=== PATIENT | male | born 1960 | race Caucasian/White ===

== ENCOUNTER 2017-05-04 17:50 | Emergency (ER) | payer OTHER ==
[~2017-05-04] VITALS: Ht 170.2 cm; Wt 93.4 kg
[~2017-05-04 17:50] MED LIST: ADVIL,NUPRIN,M200 MG PO; ALBUTEROL SULF8.5 GM IH; ALPRAZOLAM0.5 MG; ASCORBIC ACID100 MG PO; B-1100 MG PO; BUSPAR10 MG PO; CELEXA10 MG PO; CITALOPRAM HBR10 MG PO; CITALOPRAM HBR20 MG; CITALOPRAM HBR20 MG PO; CLOTRIM ANTIFUN15 GM TP; DESYREL100 MG; DESYREL100 MG PO; HYDROCHLOROTH12.5 M3 PO; LIBRIUM25 MG PO; LITHIUM; LITHIUM CARBON300 M1; LITHIUM CARBON300 M1 PO; LITHIUM CARBON300 MG PO; LITHIUM CARBON450 MG PO; MIRTAZAPINE15 MG PO; MOTRIN600 M1 PO; NAPROSYN500 MG; NAPROXEN500 MG PO; ONE DAILY1 EAC3 PO; OXYCODONE HCL5 MG; PANTOPRAZOLE SO40 MG PO; PERCOCET 5/31 TABLET PO; PROAIR HFA8.5 GM IH; QUETIAPINE FUM100 MG PO; QUETIAPINE FUM200 MG PO; QUETIAPINE FUMARATE; SEROQUEL300 MG PO; SEROQUEL50 MG PO; THERAGRAN1 TABLET PO; TRAZODONE HCL300 MG PO; UNABLEOBTAIN; VENTOLIN HFA18 GM IH; ZOLOFT; ZOLOFT100 M1 PO; Zeasorb Antifungal Treatment,Mitrazol Powder TP; [UNRECOGNIZED DRUG - REMARK]
[2017-05-04 18:08] VITALS: BP 91/68
[2017-05-04 18:52] LABS: BASOPHIL (%) 0.8 % (0-1); BASOPHIL COUNT 0.1 K/uL (0-0.1); EOSINOPHIL (%) 2.8 % (0-5); EOSINOPHIL COUNT 0.2 K/uL (0-0.3); HEMOGLOBIN 15.2 G/DL (12.5-16.6); IMMATURE GRANULOCYTE (%) 0.3 % (0.0-0.7); LYMPHOCYTE (%) 27.1 % (15-42); LYMPHOCYTE COUNT 1.6 K/uL (1.0-2.8); MCH 33.3 PG (29.0-34.0); MCHC 35.3 G/DL (30.0-36.0); MCV 94.3 FL (86-99); MONOCYTE (%) 16.3 % (3-12); NEUTROPHIL (%) 52.7 % (45-76); NEUTROPHIL COUNT 3.2 K/uL (1.8-6.4); RBC DIS.WIDTH-CV 12.9 % (11.8-14.6); RBC DIS.WIDTH-SD 44.6 % (39-53); RED BLOOD COUNT 4.56 M/uL (4.00-5.50)
[2017-05-04 18:55] LABS: PLATELET COUNT 217 K/uL (156-360)
[2017-05-04 19:05] LABS: CHLORIDE 90 mEq/L (99-109); SODIUM 128 mEq/L (136-147)
[2017-05-04 19:07] LABS: GLUCOSE 105 mg/dL (70-99)
[2017-05-04 19:10] LABS: SERUM ETHYL ALCOHOL 190 mg/dL
[2017-05-04 19:11] LABS: CREATININE 1.4 mg/dL (0.6-1.3); GFR ESTIMATE (CALCULATED) 56 mL/min/ (58.99-99999)
[2017-05-04 19:12] LABS: UREA NITROGEN (BUN) 24 mg/dL (9-23)
== END 2017-05-04 21:14 | disposition home or self-care (01) ==
LOC: EME 17:50
PROVIDERS: Emergency Medicine
DX: F10.129 Alcohol abuse with intoxication, unspecified (principal); Y90.6 Blood alcohol level of 120-199 mg/100 ml; T40.601A Poisoning by unspecified narcotics, accidental (unintentional), initial encounter; S00.91XA Abrasion of unspecified part of head, initial encounter; W19.XXXA Unspecified fall, initial encounter; K21.9 Gastro-esophageal reflux disease without esophagitis; I10 Essential (primary) hypertension; J44.9 Chronic obstructive pulmonary disease, unspecified; F20.9 Schizophrenia, unspecified; F90.9 Attention-deficit hyperactivity disorder, unspecified type; F17.200 Nicotine dependence, unspecified, uncomplicated; Z88.0 Allergy status to penicillin
CPT/HCPCS: 70450; 80048; 81003; 85025; 99281; 99284; G0480; J2310; J7030

== ENCOUNTER 2017-06-12 09:31 | Emergency (ER) | payer OTHER ==
[~2017-06-12] VITALS: Ht 170.2 cm; Wt 88.2 kg
[2017-06-12 10:20] LABS: HEMATOCRIT 40.8 % (38.0-50.0); HEMOGLOBIN 14.9 G/DL (12.5-16.6); MCH 33.4 PG (29.0-34.0); MCHC 36.5 G/DL (30.0-36.0); MCV 91.5 FL (86-99); PLATELET COUNT 267 K/uL (156-360); RBC DIS.WIDTH-CV 12.6 % (11.8-14.6); RBC DIS.WIDTH-SD 42.5 % (39-53); RED BLOOD COUNT 4.46 M/uL (4.00-5.50); WHITE BLOOD COUNT 6.2 K/uL (4.1-10.2)
[2017-06-12 10:32] LABS: CHLORIDE 95 mEq/L (99-109); POTASSIUM 3.9 mEq/L (3.7-5.4); SODIUM 132 mEq/L (136-147)
[2017-06-12 10:33] LABS: GLUCOSE 93 mg/dL (70-99)
[2017-06-12 10:37] LABS: GFR ESTIMATE (CALCULATED) > 59 mL/min/ (58.99-99999)
[2017-06-12 10:38] LABS: UREA NITROGEN (BUN) 16 mg/dL (9-23)
[2017-06-12 10:42] LABS: TROP-I INTERPRETATION NEGATIVE; TROPONIN-I < 0.01 ng/mL (0.0-0.30)
[2017-06-12] MEDS ORDERED: LORTAB 5-325 M1 EACH PO (12:20)
[2017-06-12 13:35] LABS: TROP-I INTERPRETATION NEGATIVE; TROPONIN-I < 0.01 ng/mL (0.0-0.30)
[2017-06-12 13:47] VITALS: BP 136/54
== END 2017-06-12 13:48 | disposition home or self-care (01) ==
LOC: EME 09:31
PROVIDERS: Physician Assistant Medical
DX: S22.41XA Multiple fractures of ribs, right side, initial encounter for closed fracture (principal); W11.XXXA Fall on and from ladder, initial encounter; J44.9 Chronic obstructive pulmonary disease, unspecified; I10 Essential (primary) hypertension; K21.9 Gastro-esophageal reflux disease without esophagitis; K75.9 Inflammatory liver disease, unspecified; F90.9 Attention-deficit hyperactivity disorder, unspecified type; F41.9 Anxiety disorder, unspecified; F20.9 Schizophrenia, unspecified; F17.200 Nicotine dependence, unspecified, uncomplicated; Z88.0 Allergy status to penicillin
CPT/HCPCS: 71046; 71100; 80048; 84484; 85027; 93005; 99281; 99284

== ENCOUNTER 2017-07-06 19:18 | Emergency (ER) | payer OTHER ==
[~2017-07-06] VITALS: Ht 167.6 cm; Wt 92.3 kg
[~2017-07-06 19:18] MED LIST changes: +LORTAB 5-325 M1 EACH PO
[2017-07-06 20:46] VITALS: BP 122/73
== END 2017-07-06 20:40 | disposition home or self-care (01) ==
LOC: EME 19:18
DX: F10.129 Alcohol abuse with intoxication, unspecified (principal); K21.9 Gastro-esophageal reflux disease without esophagitis; J44.9 Chronic obstructive pulmonary disease, unspecified; I10 Essential (primary) hypertension; F90.9 Attention-deficit hyperactivity disorder, unspecified type; F41.9 Anxiety disorder, unspecified; F20.9 Schizophrenia, unspecified; K75.9 Inflammatory liver disease, unspecified; F17.200 Nicotine dependence, unspecified, uncomplicated; Z88.0 Allergy status to penicillin
CPT/HCPCS: 99281; 99283

== ENCOUNTER 2017-07-12 22:17 | Inpatient (IN) | payer OTHER ==
[~2017-07-12] VITALS: Ht 167.6 cm; Wt 78.1 kg
[2017-07-12 23:04] LABS: HEMATOCRIT 34.8 % (38.0-50.0); HEMOGLOBIN 12.7 G/DL (12.5-16.6); MCH 33.7 PG (29.0-34.0); MCHC 36.5 G/DL (30.0-36.0); MCV 92.3 FL (86-99); PLATELET COUNT 106 K/uL (156-360); RBC DIS.WIDTH-CV 13.1 % (11.8-14.6); RBC DIS.WIDTH-SD 44.2 % (39-53); RED BLOOD COUNT 3.77 M/uL (4.00-5.50); WHITE BLOOD COUNT 13.2 K/uL (4.1-10.2)
[2017-07-12 23:13] LABS: ALBUMIN 3.6 g/dL (3.2-4.8); CHLORIDE 95 mEq/L (99-109); POTASSIUM 3.5 mEq/L (3.7-5.4); SODIUM 130 mEq/L (136-147)
[2017-07-12 23:16] LABS: GLUCOSE 102 mg/dL (70-99); TOTAL PROTEIN 7.5 g/dL (6.4-8.3)
[2017-07-12 23:18] LABS: TOTAL BILIRUBIN 1.2 mg/dL (0.0-1.0)
[2017-07-12 23:19] LABS: ALKALINE PHOSPHATASE 91 IU/L (3-129); INTER. NORMALIZED RATIO 1.1; SERUM ETHYL ALCOHOL 59 mg/dL
[2017-07-12 23:20] LABS: CREATININE 0.8 mg/dL (0.6-1.3); GFR ESTIMATE (CALCULATED) > 59 mL/min/ (58.99-99999)
[2017-07-12 23:21] LABS: AST (GOT) 53 IU/L (2-34); UREA NITROGEN (BUN) 13 mg/dL (9-23)
[2017-07-12 23:22] LABS: ALT (GPT) 69 IU/L (3-49); PTT 29.1 SEC (25-37)
[2017-07-12 23:23] LABS: LIPASE 78 U/L (1.0-51.0)
[2017-07-12 23:26] LABS: TROP-I INTERPRETATION NEGATIVE; TROPONIN-I 0.02 ng/mL (0.0-0.30)
[2017-07-13] MEDS ORDERED: PRINZIDE 20-121 EACH PO (01:49)
[2017-07-13 06:00] VITALS: BP 16/86
[2017-07-13 06:20] VITALS: BP 136/86
[2017-07-13 08:34] VITALS: BP 131/86
[2017-07-13 16:12] VITALS: BP 140/72
[2017-07-14 00:05] VITALS: BP 149/99
[2017-07-14 08:15] VITALS: BP 119/79
[2017-07-14 12:05] LABS: ALBUMIN 3.6 G/DL (3.2-4.8); ALKALINE PHOSPHATASE 84 IU/L (3-129); ALT (GPT) 43 IU/L (3-49); AST (GOT) 38 IU/L (2-34); CHLORIDE 104 MEQ/L (99-109); CREATININE 0.7 MG/DL (0.6-1.3); DIRECT BILIRUBIN 0.3 mg/dL (0.0-0.3); GFR ESTIMATE (CALCULATED) > 59 mL/min/ (58.99-99999); GLUCOSE 109 mg/dL (70-99); POTASSIUM 3.9 MEQ/L (3.7-5.4); SODIUM 135 MEQ/L (136-147); TOTAL BILIRUBIN 0.7 MG/DL (0.0-1.0); UREA NITROGEN (BUN) 18 mg/dL (9-23)
[2017-07-14 12:18] LABS: HEMATOCRIT 37.9 % (38.0-50.0); HEMOGLOBIN 13.3 G/DL (12.5-16.6); MCH 33.4 PG (29.0-34.0); MCHC 35.1 G/DL (30.0-36.0); MCV 95.2 FL (86-99); PLATELET COUNT 128 K/uL (156-360); RBC DIS.WIDTH-CV 13.3 % (11.8-14.6); RBC DIS.WIDTH-SD 46.9 % (39-53); RED BLOOD COUNT 3.98 M/uL (4.00-5.50); WHITE BLOOD COUNT 6.4 K/uL (4.1-10.2)
[2017-07-14 14:56] LABS: MAGNESIUM 1.8 mg/dl (1.3-2.7)
[2017-07-14 16:32] VITALS: BP 127/74
[2017-07-14 18:37] LABS: APPEARANCE CLEAR ((CLEAR)); BILIRUBIN NEGATIVE; BLOOD SMALL; COLOR YELLOW ((YELLOW)); GLUCOSE (STRIP) NEGATIVE; KETONES NEGATIVE; LEUKOCYTES LARGE; NITRITE POSITIVE; PROTEIN (STRIP) 30; UROBILINOGEN 0.2 MG/DL (0.2-1.0)
[2017-07-14 19:27] LABS: BACTERIA NONE SEEN /HPF; EPITHELIAL CELLS NONE SEEN /HPF; MUCUS TRACE /LPF; RED BLOOD CELLS 0-5 /HPF (0-5); UCUL ADDED? YES
[2017-07-14 23:48] VITALS: BP 157/88
[2017-07-15 06:21] LABS: HEMATOCRIT 36.1 % (38.0-50.0); HEMOGLOBIN 12.6 G/DL (12.5-16.6); MCH 32.7 PG (29.0-34.0); MCHC 34.9 G/DL (30.0-36.0); MCV 93.8 FL (86-99); PLATELET COUNT 129 K/uL (156-360); RBC DIS.WIDTH-CV 13.2 % (11.8-14.6); RBC DIS.WIDTH-SD 45.2 % (39-53); RED BLOOD COUNT 3.85 M/uL (4.00-5.50); WHITE BLOOD COUNT 8.4 K/uL (4.1-10.2)
[2017-07-15 06:50] LABS: CHLORIDE 97 MEQ/L (99-109); CREATININE 0.6 MG/DL (0.6-1.3); GFR ESTIMATE (CALCULATED) > 59 mL/min/ (58.99-99999); GLUCOSE 89 mg/dL (70-99); POTASSIUM 3.5 MEQ/L (3.7-5.4); SODIUM 130 MEQ/L (136-147); UREA NITROGEN (BUN) 11 mg/dL (9-23)
[2017-07-15 16:10] VITALS: BP 138/85
[2017-07-15 23:30] VITALS: BP 144/89
[2017-07-16 07:27] VITALS: BP 131/88
[2017-07-16 15:33] VITALS: BP 142/97
[2017-07-17 00:20] VITALS: BP 142/85
[2017-07-17 07:39] VITALS: BP 138/79
[2017-07-17 09:20] LABS: CHLORIDE 100 MEQ/L (99-109); CREATININE 0.7 MG/DL (0.6-1.3); GFR ESTIMATE (CALCULATED) > 59 mL/min/ (58.99-99999); POTASSIUM 3.6 MEQ/L (3.7-5.4); SODIUM 135 MEQ/L (136-147); UREA NITROGEN (BUN) 12 mg/dL (9-23)
[2017-07-17 09:21] LABS: GLUCOSE 114 mg/dL (70-99)
[2017-07-17] MEDS ORDERED: ENDOCET 5-3251 EACH PO (16:14)
[2017-07-17] MEDS ORDERED: FOLIC ACID1 MG PO (16:14)
[2017-07-17] MEDS ORDERED: CITALOPRAM HBR10 MG PO (16:14)
[2017-07-17] MEDS ORDERED: NICOTINE PATCH1 EAC1 TD (16:14)
[2017-07-17] MEDS ORDERED: LEVOFLOXACIN750 MG PO (16:14)
[2017-07-17] MEDS ORDERED: B-1100 MG PO (16:17)
[2017-07-17] MEDS ORDERED: COLACE100 MG PO (16:19)
== END 2017-07-17 17:32 | disposition home or self-care (01) | DRG 184 ==
LOC: EME → EDBD 22:17 → 3EAST 07-13 03:34 → EDOF 07-13 03:34 → ENRESERV 07-13 04:52 → 3EAST 07-13 06:00
PROVIDERS: Emergency Medicine; Physician Assistant Medical; Student in an Organized Health Care Education/Training Program
DX: S22.43XA Multiple fractures of ribs, bilateral, initial encounter for closed fracture (principal); W10.9XXA Fall (on) (from) unspecified stairs and steps, initial encounter; F10.229 Alcohol dependence with intoxication, unspecified; F10.239 Alcohol dependence with withdrawal, unspecified; R07.9 Chest pain, unspecified; R51 Headache; K76.0 Fatty (change of) liver, not elsewhere classified; I10 Essential (primary) hypertension; E80.6 Other disorders of bilirubin metabolism; K74.60 Unspecified cirrhosis of liver; B96.20 Unspecified Escherichia coli [E. coli] as the cause of diseases classified elsewhere; R00.0 Tachycardia, unspecified; F17.210 Nicotine dependence, cigarettes, uncomplicated; J44.9 Chronic obstructive pulmonary disease, unspecified; F20.9 Schizophrenia, unspecified; K75.9 Inflammatory liver disease, unspecified; R78.81 Bacteremia; N39.0 Urinary tract infection, site not specified; F32.9 Major depressive disorder, single episode, unspecified; S22.22XA Fracture of body of sternum, initial encounter for closed fracture; E87.1 Hypo-osmolality and hyponatremia; Y93.9 Activity, unspecified; Z91.81 History of falling; Z88.5 Allergy status to narcotic agent; Z59.0 Homelessness
CPT/HCPCS: 70450; 71046; 71275; 80048; 80053; 80076; 81003; 82140; 83605; 83690; 83735; 84484; 85027; 85379; 85610; 85730; 87040; 87077; 87086; 87186; 87801; 93005; 94640; 94640 76; 94799; 99281; 99285; G0480; J1650; J1885; J1956; J2060; J3010; J3411; J7030

== ENCOUNTER 2017-07-25 12:05 | Emergency (ER) | payer OTHER ==
[~2017-07-25] VITALS: Ht 167.6 cm; Wt 67.5 kg
[~2017-07-25 12:05] MED LIST changes: +COLACE100 MG PO; +ENDOCET 5-3251 EACH PO; +FOLIC ACID1 MG PO; +LEVOFLOXACIN750 MG PO; +NICOTINE PATCH1 EAC1 TD; +PRINZIDE 20-121 EACH PO
[2017-07-25 13:24] LABS: BASOPHIL (%) 1.8 % (0-1); BASOPHIL COUNT 0.1 K/uL (0-0.1); EOSINOPHIL (%) 0.8 % (0-5); EOSINOPHIL COUNT 0.1 K/uL (0-0.3); HEMATOCRIT 37.5 % (38.0-50.0); HEMOGLOBIN 13.4 G/DL (12.5-16.6); IMMATURE GRANULOCYTE (%) 0.6 % (0.0-0.7); LYMPHOCYTE (%) 37.6 % (15-42); LYMPHOCYTE COUNT 2.7 K/uL (1.0-2.8); MCH 33.3 PG (29.0-34.0); MCHC 35.7 G/DL (30.0-36.0); MCV 93.1 FL (86-99); MONOCYTE (%) 8.5 % (3-12); MONOCYTE COUNT 0.6 K/uL (0-0.8); NEUTROPHIL (%) 50.7 % (45-76); NEUTROPHIL COUNT 3.6 K/uL (1.8-6.4); RBC DIS.WIDTH-CV 13.7 % (11.8-14.6); RBC DIS.WIDTH-SD 46.4 % (39-53); RED BLOOD COUNT 4.03 M/uL (4.00-5.50); WHITE BLOOD COUNT 7.2 K/uL (4.1-10.2)
[2017-07-25 13:26] LABS: PLATELET COUNT 750 K/uL (156-360)
[2017-07-25 13:34] LABS: CHLORIDE 94 mEq/L (99-109); POTASSIUM 4.2 mEq/L (3.7-5.4); SODIUM 129 mEq/L (136-147)
[2017-07-25 13:36] LABS: GLUCOSE 92 mg/dL (70-99)
[2017-07-25 13:39] LABS: SERUM ETHYL ALCOHOL 313 mg/dL
[2017-07-25 13:40] LABS: CREATININE 0.7 mg/dL (0.6-1.3); GFR ESTIMATE (CALCULATED) > 59 mL/min/ (58.99-99999)
[2017-07-25 13:41] LABS: UREA NITROGEN (BUN) 6 mg/dL (9-23)
[2017-07-25 13:57] LABS: AMPHETAMINE NEGATIVE (500 ng/mL); BARBITURATES NEGATIVE (200 ng/mL); BENZODIAZEPINES PRESUMPTIVE POSITIVE (150 ng/mL); BUPRENORPHINE NEGATIVE (10 ng/mL); COCAINE NEGATIVE (150 ng/mL); METHADONE NEGATIVE (200 ng/mL); METHAMPHETAMINE NEGATIVE (500 ng/mL); OPIATES (MORPHINE) NEGATIVE (100 ng/mL); OXYCODONE NEGATIVE (100 ng/mL); PHENCYCLIDINE NEGATIVE (25 ng/mL); PROPOXYPHENE NEGATIVE (300 ng/mL); THC CANNABINOIDS NEGATIVE (50 ng/mL); TRICYCLIC ANTIDEPRESSANTS NEGATIVE (300 ng/mL)
[2017-07-26 02:32] LABS: BENZODIAZEPINES, URINE SCREEN POSITIVE (200 ng/mL)
[2017-07-26 10:14] VITALS: BP 147/86
== END 2017-07-26 10:14 | disposition home or self-care (01) ==
LOC: EME 12:05
PROVIDERS: Emergency Medicine
DX: F10.239 Alcohol dependence with withdrawal, unspecified (principal); Y90.8 Blood alcohol level of 240 mg/100 ml or more; F43.20 Adjustment disorder, unspecified; J44.9 Chronic obstructive pulmonary disease, unspecified; I10 Essential (primary) hypertension; K21.9 Gastro-esophageal reflux disease without esophagitis; F90.9 Attention-deficit hyperactivity disorder, unspecified type; F41.9 Anxiety disorder, unspecified; F20.9 Schizophrenia, unspecified; F17.200 Nicotine dependence, unspecified, uncomplicated; Z88.0 Allergy status to penicillin
CPT/HCPCS: 80048; 84999; 85025; 90839; 99281; 99285; G0480; J2060; J3411; J3475; J7030

== ENCOUNTER 2017-07-30 23:02 | Emergency (ER) | payer OTHER ==
[~2017-07-30] VITALS: Ht 170.2 cm; Wt 80.6 kg
[2017-07-30 23:05] VITALS: BP 108/94
[2017-07-31 00:42] LABS: HEMOGLOBIN 13.7 G/DL (12.5-16.6); MCH 33.7 PG (29.0-34.0); MCHC 36.1 G/DL (30.0-36.0); MCV 93.6 FL (86-99); RBC DIS.WIDTH-CV 13.8 % (11.8-14.6); RBC DIS.WIDTH-SD 47.1 % (39-53); RED BLOOD COUNT 4.06 M/uL (4.00-5.50)
[2017-07-31 00:50] LABS: ALBUMIN 3.8 g/dL (3.2-4.8)
[2017-07-31 00:51] LABS: CHLORIDE 100 mEq/L (99-109); SODIUM 133 mEq/L (136-147)
[2017-07-31 00:53] LABS: GLUCOSE 84 mg/dL (70-99); TOTAL PROTEIN 7.7 g/dL (6.4-8.3)
[2017-07-31 00:55] LABS: TOTAL BILIRUBIN 0.5 mg/dL (0.0-1.0)
[2017-07-31 00:56] LABS: ALKALINE PHOSPHATASE 115 IU/L (3-129); SERUM ETHYL ALCOHOL 369 mg/dL
[2017-07-31 00:57] LABS: CREATININE 0.7 mg/dL (0.6-1.3); GFR ESTIMATE (CALCULATED) > 59 mL/min/ (58.99-99999)
[2017-07-31 00:58] LABS: AST (GOT) 100 IU/L (2-34); UREA NITROGEN (BUN) 10 mg/dL (9-23)
[2017-07-31 01:00] LABS: ALT (GPT) 93 IU/L (3-49)
[2017-07-31 01:36] LABS: APPEARANCE CLEAR ((CLEAR)); BILIRUBIN NEGATIVE; BLOOD NEGATIVE; COLOR STRAW ((YELLOW)); GLUCOSE (STRIP) NEGATIVE; KETONES NEGATIVE; LEUKOCYTES NEGATIVE; NITRITE NEGATIVE; PROTEIN (STRIP) NEGATIVE; SPECIFIC GRAVITY 1.003 (1.000-1.030); UROBILINOGEN 0.2 MG/DL (0.2-1.0)
[2017-07-31 01:38] LABS: PLAT.SUFFICIENCY INCREASED; PLATELET COUNT UNABLE TO REPORT K/uL (156-360)
[2017-07-31 01:58] LABS: AMPHETAMINE NEGATIVE (500 ng/mL); BARBITURATES NEGATIVE (200 ng/mL); BENZODIAZEPINES PRESUMPTIVE POSITIVE (150 ng/mL); BUPRENORPHINE NEGATIVE (10 ng/mL); COCAINE NEGATIVE (150 ng/mL); METHADONE NEGATIVE (200 ng/mL); METHAMPHETAMINE NEGATIVE (500 ng/mL); OPIATES (MORPHINE) NEGATIVE (100 ng/mL); OXYCODONE NEGATIVE (100 ng/mL); PHENCYCLIDINE NEGATIVE (25 ng/mL); PROPOXYPHENE NEGATIVE (300 ng/mL); THC CANNABINOIDS NEGATIVE (50 ng/mL); TRICYCLIC ANTIDEPRESSANTS NEGATIVE (300 ng/mL)
[2017-07-31 03:04] LABS: BENZODIAZEPINES, URINE SCREEN POSITIVE (200 ng/mL)
== END 2017-07-31 04:43 | disposition home or self-care (01) ==
LOC: EME 23:02
PROVIDERS: Emergency Medicine
DX: F10.229 Alcohol dependence with intoxication, unspecified (principal); Y90.8 Blood alcohol level of 240 mg/100 ml or more; I10 Essential (primary) hypertension; J44.9 Chronic obstructive pulmonary disease, unspecified; Z79.51 Long term (current) use of inhaled steroids; K21.9 Gastro-esophageal reflux disease without esophagitis; G43.909 Migraine, unspecified, not intractable, without status migrainosus; F90.9 Attention-deficit hyperactivity disorder, unspecified type; F41.9 Anxiety disorder, unspecified; F20.9 Schizophrenia, unspecified; K75.9 Inflammatory liver disease, unspecified; F17.200 Nicotine dependence, unspecified, uncomplicated; Z88.0 Allergy status to penicillin
CPT/HCPCS: 70450; 71045; 72125; 80053; 81003; 82140; 84999; 85027; 93005; 99281; 99283; G0480

== ENCOUNTER 2017-08-02 16:45 | Emergency (ER) | payer OTHER ==
[~2017-08-02] VITALS: Ht 167.6 cm; Wt 81.0 kg
[2017-08-02 17:29] LABS: HEMATOCRIT 38.3 % (38.0-50.0); HEMOGLOBIN 13.7 G/DL (12.5-16.6); MCH 33.5 PG (29.0-34.0); MCHC 35.8 G/DL (30.0-36.0); MCV 93.6 FL (86-99); PLATELET COUNT 332 K/uL (156-360); RBC DIS.WIDTH-CV 13.9 % (11.8-14.6); RED BLOOD COUNT 4.09 M/uL (4.00-5.50); WHITE BLOOD COUNT 6.8 K/uL (4.1-10.2)
[2017-08-02 17:40] LABS: ALBUMIN 3.8 g/dL (3.2-4.8); CHLORIDE 100 mEq/L (99-109); POTASSIUM 3.9 mEq/L (3.7-5.4); SODIUM 134 mEq/L (136-147)
[2017-08-02 17:43] LABS: GLUCOSE 86 mg/dL (70-99); TOTAL PROTEIN 7.6 g/dL (6.4-8.3)
[2017-08-02 17:44] LABS: TOTAL BILIRUBIN 0.4 mg/dL (0.0-1.0)
[2017-08-02 17:45] LABS: SERUM ETHYL ALCOHOL 383 mg/dL
[2017-08-02 17:46] LABS: ALKALINE PHOSPHATASE 113 IU/L (3-129); CREATININE 0.8 mg/dL (0.6-1.3); GFR ESTIMATE (CALCULATED) > 59 mL/min/ (58.99-99999)
[2017-08-02 17:47] LABS: UREA NITROGEN (BUN) 7 mg/dL (9-23)
[2017-08-02 17:48] LABS: AST (GOT) 111 IU/L (2-34)
[2017-08-02 17:49] LABS: ALT (GPT) 108 IU/L (3-49)
[2017-08-02 18:11] LABS: AMPHETAMINE NEGATIVE (500 ng/mL); BARBITURATES NEGATIVE (200 ng/mL); BENZODIAZEPINES PRESUMPTIVE POSITIVE (150 ng/mL); BUPRENORPHINE NEGATIVE (10 ng/mL); COCAINE NEGATIVE (150 ng/mL); METHADONE NEGATIVE (200 ng/mL); METHAMPHETAMINE NEGATIVE (500 ng/mL); OPIATES (MORPHINE) NEGATIVE (100 ng/mL); OXYCODONE NEGATIVE (100 ng/mL); PHENCYCLIDINE NEGATIVE (25 ng/mL); PROPOXYPHENE NEGATIVE (300 ng/mL); THC CANNABINOIDS NEGATIVE (50 ng/mL); TRICYCLIC ANTIDEPRESSANTS NEGATIVE (300 ng/mL)
[2017-08-02 18:23] LABS: TROP-I INTERPRETATION NEGATIVE; TROPONIN-I < 0.01 ng/mL (0.0-0.30)
[2017-08-02 18:47] LABS: BENZODIAZEPINES, URINE SCREEN POSITIVE (200 ng/mL)
[2017-08-02] MEDS ORDERED: LIBRIUM25 MG PO (20:35)
[2017-08-02] MEDS ORDERED: B-1100 MG PO (20:50)
[2017-08-02 21:09] VITALS: BP 111/74
== END 2017-08-02 21:10 | disposition home or self-care (01) ==
LOC: EXP 16:45 → EME 16:45 → EXP 21:10
PROVIDERS: Physician Assistant Medical
DX: F10.129 Alcohol abuse with intoxication, unspecified (principal); Y90.8 Blood alcohol level of 240 mg/100 ml or more; J44.9 Chronic obstructive pulmonary disease, unspecified; K21.9 Gastro-esophageal reflux disease without esophagitis; I10 Essential (primary) hypertension; F90.9 Attention-deficit hyperactivity disorder, unspecified type; F41.9 Anxiety disorder, unspecified; F20.9 Schizophrenia, unspecified; K75.9 Inflammatory liver disease, unspecified; F17.200 Nicotine dependence, unspecified, uncomplicated; Z91.81 History of falling; Z88.0 Allergy status to penicillin
CPT/HCPCS: 71045; 80053; 84484; 84999; 85027; 93005; 99281; 99285; G0480; J3411; J7030

== ENCOUNTER 2017-08-08 14:04 | Inpatient (IN) | payer OTHER ==
[~2017-08-08] VITALS: Ht 167.6 cm; Wt 81.5 kg
[2017-08-08 15:14] LABS: HEMATOCRIT 38.3 % (38.0-50.0); HEMOGLOBIN 13.5 G/DL (12.5-16.6); MCH 33.3 PG (29.0-34.0); MCHC 35.2 G/DL (30.0-36.0); MCV 94.3 FL (86-99); RBC DIS.WIDTH-CV 14.3 % (11.8-14.6); RBC DIS.WIDTH-SD 49.5 % (39-53); RED BLOOD COUNT 4.06 M/uL (4.00-5.50); WHITE BLOOD COUNT 5.1 K/uL (4.1-10.2)
[2017-08-08 15:19] LABS: ALBUMIN 3.9 g/dL (3.2-4.8); CHLORIDE 104 mEq/L (99-109); POTASSIUM 3.9 mEq/L (3.7-5.4)
[2017-08-08 15:20] LABS: SODIUM 142 mEq/L (136-147)
[2017-08-08 15:22] LABS: GLUCOSE 87 mg/dL (70-99); TOTAL PROTEIN 7.6 g/dL (6.4-8.3)
[2017-08-08 15:24] LABS: TOTAL BILIRUBIN 0.7 mg/dL (0.0-1.0)
[2017-08-08 15:25] LABS: CREATININE 0.8 mg/dL (0.6-1.3); GFR ESTIMATE (CALCULATED) > 59 mL/min/ (58.99-99999); SERUM ETHYL ALCOHOL 341 mg/dL
[2017-08-08 15:26] LABS: ALKALINE PHOSPHATASE 109 IU/L (3-129)
[2017-08-08 15:27] LABS: AST (GOT) 87 IU/L (2-34); UREA NITROGEN (BUN) 6 mg/dL (9-23)
[2017-08-08 15:29] LABS: ACETAMINOPHEN (TYLENOL) < 10 mcg/mL (10-30); ALT (GPT) 82 IU/L (3-49); SALICYLATE < 5.0 MG/DL (15-30)
[2017-08-08 15:49] LABS: PLAT.SUFFICIENCY ADEQUATE
[2017-08-08 15:50] LABS: PLATELET COUNT 170 K/uL (156-360)
[2017-08-08 15:59] LABS: APPEARANCE CLEAR ((CLEAR)); BILIRUBIN NEGATIVE; BLOOD NEGATIVE; COLOR YELLOW ((YELLOW)); GLUCOSE (STRIP) NEGATIVE; KETONES NEGATIVE; LEUKOCYTES NEGATIVE; NITRITE NEGATIVE; PROTEIN (STRIP) NEGATIVE; SPECIFIC GRAVITY 1.006 (1.000-1.030); UROBILINOGEN 0.2 MG/DL (0.2-1.0)
[2017-08-08 16:12] LABS: AMPHETAMINE NEGATIVE (500 ng/mL); BARBITURATES NEGATIVE (200 ng/mL); BENZODIAZEPINES PRESUMPTIVE POSITIVE (150 ng/mL); BUPRENORPHINE NEGATIVE (10 ng/mL); COCAINE PRESUMPTIVE POSITIVE (150 ng/mL); METHADONE NEGATIVE (200 ng/mL); METHAMPHETAMINE NEGATIVE (500 ng/mL); OPIATES (MORPHINE) NEGATIVE (100 ng/mL); OXYCODONE NEGATIVE (100 ng/mL); PHENCYCLIDINE NEGATIVE (25 ng/mL); PROPOXYPHENE NEGATIVE (300 ng/mL); THC CANNABINOIDS NEGATIVE (50 ng/mL); TRICYCLIC ANTIDEPRESSANTS NEGATIVE (300 ng/mL)
[2017-08-08 16:53] LABS: BENZODIAZEPINES, URINE SCREEN POSITIVE (200 ng/mL)
[2017-08-08 17:07] LABS: MAGNESIUM 2.3 mg/dL (1.3-2.7)
[2017-08-08 19:11] VITALS: BP 139/82
[2017-08-09 04:19] VITALS: BP 167/108
[2017-08-09 05:26] LABS: HEMATOCRIT 37.3 % (38.0-50.0); HEMOGLOBIN 12.7 G/DL (12.5-16.6); MCH 32.4 PG (29.0-34.0); MCV 95.2 FL (86-99); PLATELET COUNT 132 K/uL (156-360); RBC DIS.WIDTH-CV 14.2 % (11.8-14.6); RBC DIS.WIDTH-SD 50.1 % (39-53); RED BLOOD COUNT 3.92 M/uL (4.00-5.50); WHITE BLOOD COUNT 3.2 K/uL (4.1-10.2)
[2017-08-09 06:21] LABS: CHLORIDE 103 MEQ/L (99-109); CREATININE 0.6 MG/DL (0.6-1.3); GFR ESTIMATE (CALCULATED) > 59 mL/min/ (58.99-99999); GLUCOSE 90 mg/dL (70-99); POTASSIUM 3.6 MEQ/L (3.7-5.4); SODIUM 141 MEQ/L (136-147); UREA NITROGEN (BUN) 8 mg/dL (9-23)
[2017-08-09 08:11] VITALS: BP 148/83
[2017-08-09 12:00] VITALS: BP 151/78
[2017-08-09 16:29] VITALS: BP 148/78
[2017-08-10 00:12] VITALS: BP 105/62
[2017-08-10 08:14] VITALS: BP 161/101
[2017-08-10 09:29] LABS: BASOPHIL (%) 0.8 % (0-1); EOSINOPHIL (%) 3.1 % (0-5); EOSINOPHIL COUNT 0.2 K/uL (0-0.3); HEMATOCRIT 42.1 % (38.0-50.0); HEMOGLOBIN 14.2 G/DL (12.5-16.6); IMMATURE GRANULOCYTE (%) 0.4 % (0.0-0.7); LYMPHOCYTE (%) 23.6 % (15-42); LYMPHOCYTE COUNT 1.1 K/uL (1.0-2.8); MCH 32.6 PG (29.0-34.0); MCHC 33.7 G/DL (30.0-36.0); MCV 96.6 FL (86-99); MONOCYTE (%) 15.2 % (3-12); MONOCYTE COUNT 0.7 K/uL (0-0.8); NEUTROPHIL (%) 56.9 % (45-76); NEUTROPHIL COUNT 2.7 K/uL (1.8-6.4); PLATELET COUNT 125 K/uL (156-360); RBC DIS.WIDTH-CV 13.9 % (11.8-14.6); RED BLOOD COUNT 4.36 M/uL (4.00-5.50); WHITE BLOOD COUNT 4.8 K/uL (4.1-10.2)
[2017-08-10 09:54] LABS: ALBUMIN 3.6 G/DL (3.2-4.8); ALKALINE PHOSPHATASE 82 IU/L (3-129); ALT (GPT) 49 IU/L (3-49); AST (GOT) 44 IU/L (2-34); CHLORIDE 102 MEQ/L (99-109); CREATININE 0.7 MG/DL (0.6-1.3); GFR ESTIMATE (CALCULATED) > 59 mL/min/ (58.99-99999); GLUCOSE 132 mg/dL (70-99); MAGNESIUM 1.7 mg/dl (1.3-2.7); SODIUM 135 MEQ/L (136-147); TOTAL BILIRUBIN 1.4 MG/DL (0.0-1.0); TOTAL PROTEIN 7.4 G/DL (6.4-8.3); UREA NITROGEN (BUN) 7 mg/dL (9-23)
[2017-08-10 12:14] VITALS: BP 157/83
[2017-08-10] MEDS ORDERED: PERCOCET 10/1 TABLET PO (20:02)
[2017-08-10 23:23] VITALS: BP 130/83
[2017-08-11 07:55] VITALS: BP 138/98
[2017-08-11 12:09] VITALS: BP 119/74
[2017-08-11 16:08] VITALS: BP 134/77
[2017-08-11 19:12] VITALS: BP 124/76
[2017-08-11 23:50] VITALS: BP 123/100
[2017-08-12 03:35] VITALS: BP 139/92
[2017-08-12 07:47] VITALS: BP 118/81
[2017-08-12 19:05] VITALS: BP 105/73
[2017-08-13 00:02] VITALS: BP 136/97
[2017-08-13 07:52] VITALS: BP 132/88
[2017-08-13] MEDS ORDERED: TYLENOL REGULA325 MG PO (11:56)
[2017-08-13] MEDS ORDERED: LISINOPRIL20 MG PO (11:57)
[2017-08-13] MEDS ORDERED: FOLIC ACID1 MG PO (11:57)
[2017-08-13] MEDS ORDERED: CHLORDIAZEPOXID25 MG PO (11:57)
[2017-08-13] MEDS ORDERED: NICOTINE PATCH1 EAC1 TD (11:57)
[2017-08-13] MEDS ORDERED: DIAZEPAM10 MG PO (11:57)
[2017-08-13] MEDS ORDERED: VENTOLIN HFA18 GM IH (11:57)
[2017-08-13] MEDS ORDERED: DOCUSATE SODIU100 MG PO (11:57)
[2017-08-13] MEDS ORDERED: B-1100 MG PO (11:58)
[2017-08-13] MEDS ORDERED: ONCE DAILY1 EACH PO (11:58)
[2017-08-13] MEDS ORDERED: OXYCODONE-APAP1 EACH PO (11:59)
== END 2017-08-13 12:53 | disposition home or self-care (01) | DRG 897 ==
LOC: EME 14:04 → EDOF 16:33 → 4SOUTH 16:33 → EDOF 16:33 → ENRESERV 16:36 → 4SOUTH 19:04
PROVIDERS: Emergency Medicine; Internal Medicine; Physician Assistant
PROC: HZ2ZZZZ Detoxification Services for Substance Abuse Treatment (ICD-10-PCS; principal; 2017-08-08)
DX: F10.239 Alcohol dependence with withdrawal, unspecified (principal); F33.9 Major depressive disorder, recurrent, unspecified; K59.00 Constipation, unspecified; F14.129 Cocaine abuse with intoxication, unspecified; F17.210 Nicotine dependence, cigarettes, uncomplicated; F20.9 Schizophrenia, unspecified; F41.9 Anxiety disorder, unspecified; F90.9 Attention-deficit hyperactivity disorder, unspecified type; I10 Essential (primary) hypertension; K21.9 Gastro-esophageal reflux disease without esophagitis; Z96.651 Presence of right artificial knee joint; Z59.0 Homelessness; Z88.0 Allergy status to penicillin
CPT/HCPCS: 80048; 80053; 81003; 82140; 83735; 84999; 85025; 85027; 94640; 94640 76; 99202; 99281; 99285; G0378; G0480; J1644; J1885; J2060; J2405; J3411; J7030

== ENCOUNTER 2017-08-17 22:44 | Emergency (ER) | payer OTHER ==
[~2017-08-17] VITALS: Ht 167.6 cm; Wt 84.7 kg
[~2017-08-17 22:44] MED LIST changes: +CHLORDIAZEPOXID25 MG PO; +DIAZEPAM10 MG PO; +DOCUSATE SODIU100 MG PO; +LISINOPRIL20 MG PO; +ONCE DAILY1 EACH PO; +OXYCODONE-APAP1 EACH PO; +PERCOCET 10/1 TABLET PO; +TYLENOL REGULA325 MG PO
[2017-08-18 06:48] LABS: HEMATOCRIT 40.8 % (38.0-50.0); HEMOGLOBIN 13.9 G/DL (12.5-16.6); MCH 33.7 PG (29.0-34.0); MCHC 34.1 G/DL (30.0-36.0); RBC DIS.WIDTH-CV 14.4 % (11.8-14.6); RBC DIS.WIDTH-SD 52.9 % (39-53); RED BLOOD COUNT 4.12 M/uL (4.00-5.50); WHITE BLOOD COUNT 4.8 K/uL (4.1-10.2)
[2017-08-18 06:50] LABS: PLATELET COUNT 313 K/uL (156-360)
[2017-08-18 06:56] LABS: AMPHETAMINE NEGATIVE (500 ng/mL); BARBITURATES NEGATIVE (200 ng/mL); BENZODIAZEPINES PRESUMPTIVE POSITIVE (150 ng/mL); BUPRENORPHINE NEGATIVE (10 ng/mL); COCAINE NEGATIVE (150 ng/mL); METHADONE NEGATIVE (200 ng/mL); METHAMPHETAMINE NEGATIVE (500 ng/mL); OPIATES (MORPHINE) NEGATIVE (100 ng/mL); OXYCODONE NEGATIVE (100 ng/mL); PHENCYCLIDINE NEGATIVE (25 ng/mL); PROPOXYPHENE NEGATIVE (300 ng/mL); THC CANNABINOIDS NEGATIVE (50 ng/mL); TRICYCLIC ANTIDEPRESSANTS NEGATIVE (300 ng/mL)
[2017-08-18 06:58] LABS: ALBUMIN 3.9 g/dL (3.2-4.8); CHLORIDE 106 mEq/L (99-109); POTASSIUM 4.4 mEq/L (3.7-5.4); SODIUM 141 mEq/L (136-147)
[2017-08-18 07:00] LABS: GLUCOSE 91 mg/dL (70-99)
[2017-08-18 07:01] LABS: TOTAL PROTEIN 7.7 g/dL (6.4-8.3)
[2017-08-18 07:02] LABS: TOTAL BILIRUBIN 0.5 mg/dL (0.0-1.0)
[2017-08-18 07:03] LABS: SERUM ETHYL ALCOHOL 33 mg/dL
[2017-08-18 07:04] LABS: ALKALINE PHOSPHATASE 94 IU/L (3-129); CREATININE 0.7 mg/dL (0.6-1.3); GFR ESTIMATE (CALCULATED) > 59 mL/min/ (58.99-99999)
[2017-08-18 07:05] LABS: UREA NITROGEN (BUN) 9 mg/dL (9-23)
[2017-08-18 07:06] LABS: AST (GOT) 53 IU/L (2-34)
[2017-08-18 07:07] LABS: ALT (GPT) 64 IU/L (3-49)
[2017-08-18 07:26] LABS: BENZODIAZEPINES, URINE SCREEN POSITIVE (200 ng/mL)
[2017-08-18 09:19] VITALS: BP 150/89
== END 2017-08-18 09:22 | disposition home or self-care (01) ==
LOC: EME 22:44
PROVIDERS: Emergency Medicine
DX: F10.129 Alcohol abuse with intoxication, unspecified (principal); F32.9 Major depressive disorder, single episode, unspecified; Z59.0 Homelessness; I10 Essential (primary) hypertension; J44.9 Chronic obstructive pulmonary disease, unspecified; F17.200 Nicotine dependence, unspecified, uncomplicated
CPT/HCPCS: 80053; 84999; 85027; 90839; 99281; 99284; G0480

== ENCOUNTER 2017-08-26 21:59 | Emergency (ER) | payer OTHER ==
[~2017-08-26] VITALS: Ht 177.8 cm; Wt 72.7 kg
[2017-08-27 05:55] VITALS: BP 102/64
== END 2017-08-27 06:00 | disposition home or self-care (01) ==
LOC: EME 21:59
DX: F10.129 Alcohol abuse with intoxication, unspecified (principal); Y90.9 Presence of alcohol in blood, level not specified; I10 Essential (primary) hypertension; J44.9 Chronic obstructive pulmonary disease, unspecified; K21.9 Gastro-esophageal reflux disease without esophagitis; F90.9 Attention-deficit hyperactivity disorder, unspecified type; F41.9 Anxiety disorder, unspecified; F20.9 Schizophrenia, unspecified; Z86.69 Personal history of other diseases of the nervous system and sense organs; F17.200 Nicotine dependence, unspecified, uncomplicated
CPT/HCPCS: 99281; 99284

== ENCOUNTER 2017-09-01 23:43 | Inpatient (IN) | payer OTHER ==
[~2017-09-01] VITALS: Ht 167.6 cm; Wt 80.6 kg
[2017-09-02 01:04] LABS: BASOPHIL (%) 0.9 % (0-1); BASOPHIL COUNT 0.1 K/uL (0-0.1); EOSINOPHIL (%) 0.1 % (0-5); HEMOGLOBIN 12.7 G/DL (12.5-16.6); IMMATURE GRANULOCYTE (%) 0.4 % (0.0-0.7); LYMPHOCYTE (%) 12.8 % (15-42); LYMPHOCYTE COUNT 0.9 K/uL (1.0-2.8); MCHC 37.4 G/DL (30.0-36.0); MCV 90.9 FL (86-99); MONOCYTE (%) 10.4 % (3-12); MONOCYTE COUNT 0.7 K/uL (0-0.8); NEUTROPHIL (%) 75.4 % (45-76); NEUTROPHIL COUNT 5.2 K/uL (1.8-6.4); PLATELET COUNT 233 K/uL (156-360); RBC DIS.WIDTH-CV 12.6 % (11.8-14.6); RBC DIS.WIDTH-SD 41.9 % (39-53); RED BLOOD COUNT 3.74 M/uL (4.00-5.50); WHITE BLOOD COUNT 6.9 K/uL (4.1-10.2)
[2017-09-02 01:11] LABS: AMYLASE 75 IU/L (1-118); CHLORIDE 84 mEq/L (99-109); POTASSIUM 3.9 mEq/L (3.7-5.4)
[2017-09-02 01:13] LABS: GLUCOSE 85 mg/dL (70-99)
[2017-09-02 01:16] LABS: SERUM ETHYL ALCOHOL 346 mg/dL
[2017-09-02 01:17] LABS: CREATININE 1.4 mg/dL (0.6-1.3); GFR ESTIMATE (CALCULATED) 56 mL/min/ (58.99-99999)
[2017-09-02 01:18] LABS: UREA NITROGEN (BUN) 11 mg/dL (9-23)
[2017-09-02 01:20] LABS: LIPASE 99 U/L (1.0-51.0)
[2017-09-02 01:23] LABS: APPEARANCE CLEAR ((CLEAR)); BILIRUBIN NEGATIVE; BLOOD NEGATIVE; COLOR YELLOW ((YELLOW)); GLUCOSE (STRIP) NEGATIVE; KETONES NEGATIVE; LEUKOCYTES NEGATIVE; NITRITE NEGATIVE; PROTEIN (STRIP) NEGATIVE; UCUL ADDED? NO
[2017-09-02 01:30] LABS: SODIUM 119 mEq/L (136-147)
[2017-09-02 01:34] LABS: AMPHETAMINE NEGATIVE (500 ng/mL); BARBITURATES NEGATIVE (200 ng/mL); BENZODIAZEPINES PRESUMPTIVE POSITIVE (150 ng/mL); BUPRENORPHINE NEGATIVE (10 ng/mL); COCAINE NEGATIVE (150 ng/mL); METHADONE NEGATIVE (200 ng/mL); METHAMPHETAMINE NEGATIVE (500 ng/mL); OPIATES (MORPHINE) NEGATIVE (100 ng/mL); OXYCODONE NEGATIVE (100 ng/mL); PHENCYCLIDINE NEGATIVE (25 ng/mL); PROPOXYPHENE NEGATIVE (300 ng/mL); THC CANNABINOIDS NEGATIVE (50 ng/mL); TRICYCLIC ANTIDEPRESSANTS NEGATIVE (300 ng/mL)
[2017-09-02 02:11] LABS: BENZODIAZEPINES, URINE SCREEN POSITIVE (200 ng/mL)
[2017-09-02 04:02] LABS: CHLORIDE 89 mEq/L (99-109); POTASSIUM 3.6 mEq/L (3.7-5.4); SODIUM 121 mEq/L (136-147)
[2017-09-02 04:03] LABS: GLUCOSE 75 mg/dL (70-99)
[2017-09-02 04:07] LABS: GFR ESTIMATE (CALCULATED) > 59 mL/min/ (58.99-99999)
[2017-09-02 04:08] LABS: UREA NITROGEN (BUN) 10 mg/dL (9-23)
[2017-09-02 08:17] LABS: ALBUMIN 3.7 G/DL (3.2-4.8); DIRECT BILIRUBIN 0.3 mg/dL (0.0-0.3); MAGNESIUM 1.8 mg/dl (1.3-2.7); TOTAL BILIRUBIN 0.9 MG/DL (0.0-1.0)
[2017-09-02 08:23] LABS: ALKALINE PHOSPHATASE 93 IU/L (3-129); ALT (GPT) 140 IU/L (3-49); AST (GOT) 204 IU/L (2-34)
[2017-09-02 09:30] VITALS: BP 111/60
[2017-09-02 16:00] VITALS: BP 123/71
[2017-09-02 19:45] VITALS: BP 128/83
[2017-09-03] VITALS (7 sets, daily range): BP systolic 112–174; BP diastolic 65–94
[2017-09-03 05:23] LABS: MCH 33.3 PG (29.0-34.0); MCHC 35.3 G/DL (30.0-36.0); MCV 94.4 FL (86-99); PLATELET COUNT 166 K/uL (156-360); RBC DIS.WIDTH-CV 12.9 % (11.8-14.6); RBC DIS.WIDTH-SD 44.5 % (39-53); WHITE BLOOD COUNT 5.2 K/uL (4.1-10.2)
[2017-09-03 05:44] LABS: ALBUMIN 3.6 G/DL (3.2-4.8); ALKALINE PHOSPHATASE 82 IU/L (3-129); ALT (GPT) 107 IU/L (3-49); CHLORIDE 98 MEQ/L (99-109); CREATININE 0.6 MG/DL (0.6-1.3); GFR ESTIMATE (CALCULATED) > 59 mL/min/ (58.99-99999); POTASSIUM 4.2 MEQ/L (3.7-5.4); TOTAL PROTEIN 6.5 G/DL (6.4-8.3); UREA NITROGEN (BUN) 12 mg/dL (9-23)
[2017-09-03 05:54] LABS: AST (GOT) 98 IU/L (2-34); GLUCOSE 103 mg/dL (70-99); SODIUM 130 MEQ/L (136-147); TOTAL BILIRUBIN 1.1 MG/DL (0.0-1.0)
[2017-09-04 04:15] VITALS: BP 143/87
[2017-09-04 07:28] VITALS: BP 112/78
== END 2017-09-04 08:42 | disposition left against medical advice (07) | DRG 894 ==
LOC: EME → EDBD 23:43 → EDOF 09-02 07:44 → 4EAST 09-02 07:44 → ENRESERV 09-02 07:45 → 4EAST 09-02 08:51 → ENRESERV 09-03 10:54 → CANRESERV 09-03 10:54 → 4EAST 09-04 08:42
PROVIDERS: Emergency Medicine; Internal Medicine
PROC: HZ2ZZZZ Detoxification Services for Substance Abuse Treatment (ICD-10-PCS; principal; 2017-09-02)
DX: F10.229 Alcohol dependence with intoxication, unspecified (principal); F10.239 Alcohol dependence with withdrawal, unspecified; N17.9 Acute kidney failure, unspecified; E87.1 Hypo-osmolality and hyponatremia; R45.851 Suicidal ideations; I95.9 Hypotension, unspecified; R09.02 Hypoxemia; S22.41XA Multiple fractures of ribs, right side, initial encounter for closed fracture; W19.XXXA Unspecified fall, initial encounter; Y93.01 Activity, walking, marching and hiking; Z59.0 Homelessness; B19.20 Unspecified viral hepatitis C without hepatic coma; R74.0 Nonspecific elevation of levels of transaminase and lactic acid dehydrogenase [LDH]; I10 Essential (primary) hypertension; J44.9 Chronic obstructive pulmonary disease, unspecified; F17.210 Nicotine dependence, cigarettes, uncomplicated; K62.5 Hemorrhage of anus and rectum; M19.031 Primary osteoarthritis, right wrist; Z96.651 Presence of right artificial knee joint; R29.6 Repeated falls
CPT/HCPCS: 70450; 71260; 72125; 73110; 74177; 80048; 80048 91; 80053; 80076; 81003; 82140; 82150; 83690; 83735; 84999; 85025; 85027; 86850; 86900; 86901; 93005; 94640; 94799; 99281; 99285; G0480; J1644; J2405; J7030

== ENCOUNTER 2017-09-04 13:30 | Emergency (ER) | payer OTHER ==
[~2017-09-04] VITALS: Ht 167.6 cm; Wt 81.5 kg
[2017-09-04 14:20] LABS: HEMATOCRIT 32.3 % (38.0-50.0); HEMOGLOBIN 11.6 G/DL (12.5-16.6); MCH 34.4 PG (29.0-34.0); MCHC 35.9 G/DL (30.0-36.0); MCV 95.8 FL (86-99); PLATELET COUNT 123 K/uL (156-360); RBC DIS.WIDTH-CV 12.9 % (11.8-14.6); RBC DIS.WIDTH-SD 45.5 % (39-53); RED BLOOD COUNT 3.37 M/uL (4.00-5.50); WHITE BLOOD COUNT 8.6 K/uL (4.1-10.2)
[2017-09-04 14:31] LABS: ALBUMIN 3.6 g/dL (3.2-4.8)
[2017-09-04 14:32] LABS: CHLORIDE 94 mEq/L (99-109); POTASSIUM 3.6 mEq/L (3.7-5.4); SODIUM 127 mEq/L (136-147)
[2017-09-04 14:34] LABS: GLUCOSE 87 mg/dL (70-99); TOTAL PROTEIN 7.1 g/dL (6.4-8.3)
[2017-09-04 14:36] LABS: TOTAL BILIRUBIN 0.9 mg/dL (0.0-1.0)
[2017-09-04 14:37] LABS: ALKALINE PHOSPHATASE 91 IU/L (3-129)
[2017-09-04 14:38] LABS: CREATININE 0.7 mg/dL (0.6-1.3); GFR ESTIMATE (CALCULATED) > 59 mL/min/ (58.99-99999)
[2017-09-04 14:39] LABS: AST (GOT) 69 IU/L (2-34); DIRECT BILIRUBIN 0.6 mg/dL (0.0-0.3); UREA NITROGEN (BUN) 9 mg/dL (9-23)
[2017-09-04 14:41] LABS: ALT (GPT) 87 IU/L (3-49); LIPASE 18 U/L (1.0-51.0)
[2017-09-04 14:58] LABS: APPEARANCE CLEAR ((CLEAR)); BILIRUBIN NEGATIVE; BLOOD NEGATIVE; COLOR YELLOW ((YELLOW)); GLUCOSE (STRIP) NEGATIVE; KETONES NEGATIVE; LEUKOCYTES NEGATIVE; NITRITE NEGATIVE; PROTEIN (STRIP) NEGATIVE; SPECIFIC GRAVITY 1.006 (1.000-1.030); UROBILINOGEN 0.2 MG/DL (0.2-1.0)
[2017-09-04 15:18] VITALS: BP 136/87
== END 2017-09-04 15:20 | disposition left against medical advice (07) ==
LOC: EME 13:30
PROVIDERS: Emergency Medicine
DX: S22.39XA Fracture of one rib, unspecified side, initial encounter for closed fracture (principal); W13.2XXA Fall from, out of or through roof, initial encounter; J44.9 Chronic obstructive pulmonary disease, unspecified; I10 Essential (primary) hypertension; K21.9 Gastro-esophageal reflux disease without esophagitis; F90.9 Attention-deficit hyperactivity disorder, unspecified type; F20.9 Schizophrenia, unspecified; F41.9 Anxiety disorder, unspecified; F17.200 Nicotine dependence, unspecified, uncomplicated; Z86.19 Personal history of other infectious and parasitic diseases; Z88.0 Allergy status to penicillin
CPT/HCPCS: 80048; 80076; 81003; 83690; 85027; 87086

== ENCOUNTER 2017-09-07 19:24 | Inpatient (IN) | payer OTHER ==
[~2017-09-07] VITALS: Ht 167.6 cm; Wt 81.5 kg
[2017-09-07 20:00] LABS: HEMOGLOBIN 11.5 G/DL (12.5-16.6); MCH 34.1 PG (29.0-34.0); MCHC 34.8 G/DL (30.0-36.0); MCV 97.9 FL (86-99); RBC DIS.WIDTH-CV 13.3 % (11.8-14.6); RBC DIS.WIDTH-SD 47.5 % (39-53); RED BLOOD COUNT 3.37 M/uL (4.00-5.50)
[2017-09-07 20:04] LABS: PLATELET COUNT 174 K/uL (156-360)
[2017-09-07 20:11] LABS: POTASSIUM 3.7 mEq/L (3.7-5.4)
[2017-09-07 20:13] LABS: GLUCOSE 111 mg/dL (70-99)
[2017-09-07 20:16] LABS: CHLORIDE 105 mEq/L (99-109); SODIUM 140 mEq/L (136-147)
[2017-09-07 20:17] LABS: CREATININE 0.8 mg/dL (0.6-1.3); GFR ESTIMATE (CALCULATED) > 59 mL/min/ (58.99-99999)
[2017-09-07 20:18] LABS: UREA NITROGEN (BUN) 10 mg/dL (9-23)
[2017-09-07 20:21] LABS: TROP-I INTERPRETATION NEGATIVE; TROPONIN-I 0.01 ng/mL (0.0-0.30)
[2017-09-07 21:58] LABS: BICARBONATE 25.7 mEq/L (22-26); CARBOXY HGB 3.7 % (0-5); COMMENTS - BLOOD GASES C+A+; DEVICE NC; METHEMOGLOBIN 1 % (0-1.5); O2 FLOW 5 L/MIN; PCO2 51 mm Hg (35-45); PO2 79 mm Hg (80-100); SITE RR; pH 7.31 (7.35-7.45)
[2017-09-07 23:08] LABS: PTT 30.1 SEC (25-37)
[2017-09-07 23:15] LABS: ALBUMIN 3.5 g/dL (3.2-4.8)
[2017-09-07 23:18] LABS: CREATINE KINASE 184 IU/L (1-294)
[2017-09-07 23:18] LABS: TOTAL PROTEIN 6.7 g/dL (6.4-8.3)
[2017-09-07 23:21] LABS: ALKALINE PHOSPHATASE 104 IU/L (3-129)
[2017-09-07 23:23] LABS: AST (GOT) 52 IU/L (2-34); DIRECT BILIRUBIN 0.3 mg/dL (0.0-0.3)
[2017-09-07 23:24] LABS: ALT (GPT) 52 IU/L (3-49)
[2017-09-07 23:30] LABS: CK-MB 1.8 ng/mL (0.0-4.9)
[2017-09-07 23:51] LABS: TOTAL BILIRUBIN 0.3 mg/dL (0.0-1.0)
[2017-09-08 01:27] LABS: APPEARANCE CLEAR ((CLEAR)); BILIRUBIN NEGATIVE; BLOOD NEGATIVE; COLOR STRAW ((YELLOW)); GLUCOSE (STRIP) NEGATIVE; KETONES NEGATIVE; LEUKOCYTES NEGATIVE; NITRITE NEGATIVE; PROTEIN (STRIP) NEGATIVE; SPECIFIC GRAVITY 1.004 (1.000-1.030); UCUL ADDED? NO; UROBILINOGEN 0.2 MG/DL (0.2-1.0)
[2017-09-08 01:35] LABS: CREATINE KINASE 184 IU/L (1-294)
[2017-09-08 01:38] LABS: AMPHETAMINE NEGATIVE (500 ng/mL); BARBITURATES NEGATIVE (200 ng/mL); BENZODIAZEPINES PRESUMPTIVE POSITIVE (150 ng/mL); BUPRENORPHINE NEGATIVE (10 ng/mL); COCAINE NEGATIVE (150 ng/mL); METHADONE NEGATIVE (200 ng/mL); METHAMPHETAMINE NEGATIVE (500 ng/mL); OPIATES (MORPHINE) NEGATIVE (100 ng/mL); OXYCODONE NEGATIVE (100 ng/mL); PHENCYCLIDINE NEGATIVE (25 ng/mL); PROPOXYPHENE NEGATIVE (300 ng/mL); THC CANNABINOIDS NEGATIVE (50 ng/mL); TRICYCLIC ANTIDEPRESSANTS NEGATIVE (300 ng/mL)
[2017-09-08 01:49] VITALS: BP 118/66
[2017-09-08 02:04] LABS: BENZODIAZEPINES, URINE SCREEN Negative (200 ng/mL)
[2017-09-08 04:49] LABS: SERUM ETHYL ALCOHOL 303 mg/dL
[2017-09-08 07:50] VITALS: BP 132/73
[2017-09-08 12:00] VITALS: BP 167/97
[2017-09-08] MEDS ORDERED: VENTOLIN HFA18 GM IH (12:06)
[2017-09-08] MEDS ORDERED: ZESTRIL20 MG PO (12:06)
[2017-09-08] MEDS ORDERED: ADVIL200 MG PO (12:07)
[2017-09-08 16:00] VITALS: BP 144/77
[2017-09-08 19:28] VITALS: BP 138/79
[2017-09-09] VITALS (7 sets, daily range): BP systolic 135–179; BP diastolic 69–98
[2017-09-09 05:51] LABS: BASOPHIL (%) 0.1 % (0-1); EOSINOPHIL (%) 0 % (0-5); HEMATOCRIT 31.1 % (38.0-50.0); HEMOGLOBIN 10.5 G/DL (12.5-16.6); IMMATURE GRANULOCYTE (%) 0.8 % (0.0-0.7); LYMPHOCYTE (%) 8.2 % (15-42); LYMPHOCYTE COUNT 0.7 K/uL (1.0-2.8); MCH 33.2 PG (29.0-34.0); MCHC 33.8 G/DL (30.0-36.0); MCV 98.4 FL (86-99); MONOCYTE (%) 10.3 % (3-12); MONOCYTE COUNT 0.9 K/uL (0-0.8); NEUTROPHIL (%) 80.6 % (45-76); PLATELET COUNT 218 K/uL (156-360); RBC DIS.WIDTH-CV 13.2 % (11.8-14.6); RBC DIS.WIDTH-SD 46.9 % (39-53); RED BLOOD COUNT 3.16 M/uL (4.00-5.50); WHITE BLOOD COUNT 8.7 K/uL (4.1-10.2)
[2017-09-09 06:30] LABS: CHLORIDE 102 MEQ/L (99-109); CREATININE 0.5 MG/DL (0.6-1.3); GFR ESTIMATE (CALCULATED) > 59 mL/min/ (58.99-99999); GLUCOSE 146 mg/dL (70-99); POTASSIUM 4.3 MEQ/L (3.7-5.4); SODIUM 135 MEQ/L (136-147); UREA NITROGEN (BUN) 10 mg/dL (9-23)
[2017-09-10 03:25] VITALS: BP 124/88
[2017-09-10 06:49] VITALS: BP 132/78
[2017-09-10 11:13] VITALS: BP 133/72
[2017-09-10 14:57] VITALS: BP 126/71
[2017-09-10 19:27] VITALS: BP 176/84
[2017-09-10 23:33] VITALS: BP 147/78
[2017-09-11 04:23] VITALS: BP 156/74
[2017-09-11 08:50] VITALS: BP 138/90
[2017-09-11 11:50] VITALS: BP 150/101
[2017-09-11 16:27] VITALS: BP 154/96
[2017-09-11 19:13] VITALS: BP 157/87
[2017-09-12 00:07] VITALS: BP 149/82
[2017-09-12 06:10] VITALS: BP 153/70
[2017-09-12 07:25] VITALS: BP 141/92
[2017-09-12] MEDS ORDERED: LEVOFLOXACIN750 MG PO (09:36)
[2017-09-12] MEDS ORDERED: ZESTRIL20 MG PO (09:44)
[2017-09-12] MEDS ORDERED: BUSPAR15 MG PO (09:46)
[2017-09-12] MEDS ORDERED: CITALOPRAM HBR20 MG PO (09:46)
[2017-09-12] MEDS ORDERED: THIAMINE HCL100 MG PO (09:47)
[2017-09-12] MEDS ORDERED: FOLIC ACID1 MG PO (09:47)
[2017-09-12] MEDS ORDERED: DULERA 100 MCG/13 GM IH (09:47)
[2017-09-12] MEDS ORDERED: PREDNISONE5 MG PO (09:48)
[2017-09-12] MEDS ORDERED: ULTRAM50 MG PO (09:56)
[2017-09-12] MEDS ORDERED: SPIRIVA RESPIMAT4 GM IH (09:57)
[2017-09-12] MEDS ORDERED: VENTOLIN HFA18 GM IH (09:59)
== END 2017-09-12 11:40 | disposition home or self-care (01) | DRG 189 ==
LOC: EME 19:24 → EDOF 22:36 → 4EAST 22:36 → ENRESERV 22:38 → 4EAST 09-08 01:04 → ENPENDDIS 09-12 → 4EAST 09-12 11:40
PROVIDERS: Emergency Medicine; Hospitalist
DX: J96.01 Acute respiratory failure with hypoxia (principal); J15.9 Unspecified bacterial pneumonia; J69.0 Pneumonitis due to inhalation of food and vomit; F10.221 Alcohol dependence with intoxication delirium; S22.43XA Multiple fractures of ribs, bilateral, initial encounter for closed fracture; J44.0 Chronic obstructive pulmonary disease with (acute) lower respiratory infection; F33.1 Major depressive disorder, recurrent, moderate; J90 Pleural effusion, not elsewhere classified; F05 Delirium due to known physiological condition; W11.XXXA Fall on and from ladder, initial encounter; Y90.8 Blood alcohol level of 240 mg/100 ml or more; F17.210 Nicotine dependence, cigarettes, uncomplicated; F41.9 Anxiety disorder, unspecified; K70.10 Alcoholic hepatitis without ascites; I10 Essential (primary) hypertension; G89.29 Other chronic pain; K21.9 Gastro-esophageal reflux disease without esophagitis; Y93.01 Activity, walking, marching and hiking; R29.6 Repeated falls; F20.9 Schizophrenia, unspecified; Y95 Nosocomial condition; F13.10 Sedative, hypnotic or anxiolytic abuse, uncomplicated; Z59.0 Homelessness; Z88.0 Allergy status to penicillin; Z79.51 Long term (current) use of inhaled steroids; Z79.52 Long term (current) use of systemic steroids
CPT/HCPCS: 36600; 70450; 71045; 71250; 71275; 72125; 74176; 80048; 80076; 80202; 81003; 82140; 82550; 82550 91; 82553; 82803; 83605; 83690; 83735; 83880; 84484; 84999; 85025; 85027; 85379; 85610; 85730; 87040; 87070; 87086; 87205; 87449; 87502; 93005; 94640; 94760; 94799; 99281; 99285; G0480; J1650; J1885; J1956; J2060; J2930; J3370; J7042; J7512; S0030